=== PATIENT | male | born 1995 | race Caucasian/White ===

== ENCOUNTER 2017-03-09 22:46 | Emergency (ER) | payer SELFPAY ==
[~2017-03-09] VITALS: Ht 170.2 cm; Wt 92.5 kg
[2017-03-09 22:50] VITALS: Ht 170.2 cm; Wt 92.5 kg
[2017-03-10] MEDS ORDERED: IBUPROFEN 600 MG TAB PO ONE (01:00)
--- NOTE | 2017-03-10 01:42 | RADRPT ---
PROCEDURE: RIGHT KNEE - 3 VIEWS CLINICAL INDICATION: 21-year-old male with right knee pain. TECHNIQUE: AP, lateral and tunnel views of the right knee were obtained. The images reviewed on a PACS workstation. COMPARISON: None. FINDINGS: The bones appear intact, with no evidence of fracture, erosion, demineralization, or dislocation. Th e alignment of the femorotibial and patellofemoral joints appears normal. No joint space narrowing i s seen. IMPRESSION: Unremarkable examination of the right knee. .Matthew Keys MD, MD Date Time Electronically viewed and signed by .Matthew Keys MD, MD on 03/10/2017 01:42 .M/
[2017-03-10] MEDS ORDERED: IBUP-1542 PO (01:48)
--- NOTE | 2017-03-10 01:54 | ERD ---
ER Documentation Chief Complaint Date/Time DATE: 03/10/17 TIME: 01:51 Chief Complaint RIGHT KNEE PAIN TODAY FROM RUNNING. STATES NO TRAUMA OR FALL HPI This is a 21-year-old male that presents to the ER with right knee pain that started after he twisted his knee. Patient was his knee about a month ago and now the worried because he twisted it for a second time. Patient denies any numbness or tingling to his leg. He states that it is more painful whenever he walks whenever he tries to bend his knee. Pain is described as throbbing in quality it is nonradiating. He denies any fevers or chills. Patient has had some mild swelling of the knee. ROS 12 point review of systems was done, all negative except per HPI. Medications Home Meds Active Scripts Ibuprofen* (Motrin*) 600 Mg Tab, 600 MG PO Q6, #30 TAB Prov:JESE MILLAN 03/10/17 Allergies Allergies: Uncoded Allergies: PENICILLIN (Allergy, Unknown, 03/10/17) PMhx/Soc Medical and Surgical Hx: pt denies Medical Hx, pt denies Surgical Hx Hx Alcohol Use: No Hx Substance Use: No Hx Tobacco Use: No Smoking Status: Never smoker Physical Exam Vitals Vital Signs Date Time Temp Pulse Resp B/P Pulse Ox O2 Delivery O2 Flow Rate FiO2 03/09/17 22:50 99.3 77 20 119/56 98 Physical Exam GENERAL: The patient is well developed and appropriate for usual state of health , in no apparent distress. HEENT: Atraumatic. CHEST: Clear to auscultation bilaterally. There are no rales, wheezes or rhonchi. HEART: Regular rate and rhythm. No murmurs, clicks, rubs or gallops. EXTREMITIES: There is slight swelling to the right knee patient has full range of motion of the knee, however flexion is a little bit painful. Negative anterior drawer negative posterior drawer negative Dashawn test vascularly intact. He does not have any calf swelling redness. Does not have any femur pain upon palpation. NEURO: Alert and oriented. SKIN: There is no apparent rash or petechia. The skin is warm and dry. Results 24 hrs Current Medications Medications (Trade) Dose Ordered Sig/Kuldip Route PRN Reason Start Time Stop Time Status Last Admin Dose Admin Ibuprofen (Motrin) 600 mg ONCE ONCE PO 03/10/17 01:00 03/10/17 01:01 DC 03/10/17 01:09 Procedures/MDM This is a 21-year-old male presents to the ER with knee pain. At this time is evidence of fracture dislocation I however cannot rule out meniscus or ligament tear. Patient is neurovascularly intact and is ambulatory in the ER. He was given a knee immobilizer he was neurovascularly intact before and after splint application. Strength is afebrile and has full range of motion of the joints. I doubt infectious etiology. Patient is to follow-up with his primary care doctor within 1-2 days return to ER sooner if symptoms worsen. Follow-up discussed with patient he understands and agrees with plan. Departure Diagnosis: Primary Impression: Knee sprain Condition: Stable Patient Instructions: Knee Sprain Additional Instructions: Call your primary care doctor TOMORROW for an appointment during the next 1-2 days.See the doctor sooner or return here if your condition worsens before your appointment time. JESE MILLAN Mar 10, 2017 01:53
== END 2017-03-10 02:13 | disposition home or self-care (01) ==
LOC: FTE 22:46
DX: S83.91XA Sprain of unspecified site of right knee, initial encounter (principal); X50.1XXA Overexertion from prolonged static or awkward postures, initial encounter; Y92.9 Unspecified place or not applicable
CPT/HCPCS: 73562